=== PATIENT | female | born 1985 | race Caucasian/White ===

== ENCOUNTER 2017-01-28 17:51 | Emergency (ER) | payer OTHER ==
[2017-01-28] MEDS ORDERED: FENTANYL CITRATE INJ/PF 100 MCG/2 ML AMPUL IV PRN (18:32)
[2017-01-28] MEDS ORDERED: ONDANSETRON HCL INJ/PF 4 MG/2 ML SDV IV ONE (18:32)
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
[2017-01-28] MEDS ORDERED: DIPH/PERTUSS(ACELL)/TETANUS VAC/PF 0.5 ML SYR (>=10YO) IM ONE (20:55)
[2017-01-28] MEDS ORDERED: ACETAMINOPHEN 325 MG TABLET PO ONE (21:15)
[2017-01-28 21:33] VITALS: BP 111/74
== END 2017-01-28 21:20 | disposition home or self-care (01) ==
LOC: ER 17:51
DX: S70.312A Abrasion, left thigh, initial encounter (principal); S70.311A Abrasion, right thigh, initial encounter; S06.0X1A Concussion with loss of consciousness of 30 minutes or less, initial encounter; R10.30 Lower abdominal pain, unspecified; R51 Headache; V89.2XXA Person injured in unspecified motor-vehicle accident, traffic, initial encounter; Z88.0 Allergy status to penicillin; Z23 Encounter for immunization
CPT/HCPCS: 99284; 90471; 96374; 96375; 70450; 74177; J3010; J2405